=== PATIENT | female | born 1965 | race Hispanic/Latino ===

== ENCOUNTER → 2019-11-17 | Outpatient (CLI) | payer BC | END | disposition home or self-care (01) | LOC: RAH 07:55 | PROVIDERS: ATTEND Family Medicine | DX: K80.20 Calculus of gallbladder without cholecystitis without obstruction (principal); K76.0 Fatty (change of) liver, not elsewhere classified; R94.5 Abnormal results of liver function studies; R16.0 Hepatomegaly, not elsewhere classified | CPT/HCPCS: 76700 ==